=== PATIENT | male | born 1995 | race Caucasian/White ===

== ENCOUNTER 2019-10-02 10:43 | Emergency (ER) | payer OTHER, SELFPAY ==
[2019-10-02] MEDS ORDERED: Lidocaine 1% w/Epinephrine 1:100K 20 ML VIAL ONE (11:21)
[2019-10-02] MEDS ORDERED: Adacel (T-DAP) 0.5 ML SYRINGE ONE (11:26)
--- NOTE | 2019-10-02 11:35 | RAD ---
Exam:2 views right forearm HISTORY: Trauma. Pain. COMPARISON: None FINDINGS: No fracture, cortical irregularity or periosteal reaction. IMPRESSION: No fracture.
[2019-10-02] MEDS ORDERED: Bacitracin 1 PK ONE (12:21)
== END 2019-10-02 12:32 | disposition home or self-care (01) ==
LOC: ERS 10:43
DX: S51.811A Laceration without foreign body of right forearm, initial encounter (principal); F17.210 Nicotine dependence, cigarettes, uncomplicated; W45.8XXA Other foreign body or object entering through skin, initial encounter
CPT/HCPCS: 12002; 90471; 90715

== ENCOUNTER 2023-10-11 20:30 | Emergency (ER) | payer SELFPAY ==
[2023-10-11] MEDS ORDERED: Lidocaine 1% PF 5 ML VIAL ONE (22:00)
[2023-10-11] MEDS ORDERED: Bacitracin 1 PK ONE (23:48)
== END 2023-10-11 23:53 | disposition home or self-care (01) ==
LOC: ERS 20:30
DX: S61.210A Laceration without foreign body of right index finger without damage to nail, initial encounter (principal); F17.290 Nicotine dependence, other tobacco product, uncomplicated; X58.XXXA Exposure to other specified factors, initial encounter; Y93.89 Activity, other specified
CPT/HCPCS: 12002; 99282